=== PATIENT | female | born 1985 | race Caucasian/White ===

== ENCOUNTER 2017-10-06 02:50 | Inpatient (IN) | payer OTHER, SELFPAY ==
--- NOTE | 2017-10-06 02:50 | DT_ITS ---
This patient was seen during an EMR downtime October 04, 2017 - October 11, 2017. This patient may have a combination of paper and electronic documentation or all paper documentation. All documentation is viewable within the e-chart portion of [facility] for each patient visit.
--- NOTE | 2017-10-07 15:30 | CASEMGMT ---
Social Work Assessment Labor and Delivery Unit Date of Referral: 10/06/2017 Date of Intervention: 10/07/2017 Time of Intervention: 1530 Reason for Referral: maternal history of depression; assess for resources and support needs History obtained from: Medical record, mother of baby (MOB) Verona Bennett, and father of baby (FOB) also present for conversation. Household composition: MOB, FOB Colten Bennett, older child, and intent to take to this home. Denies any safety concerns in home environment. Patient's parent/guardian status: MOB and FOB are and now have two children together. Children: Loco who is a year and a half old, and then Lyndon who was born October 2017. Medical History: MOB is G2, P1 to 2 after delivery of . care started at 10 weeks gestation. born weighing 7 pounds 2 ounces. Educational Status: MOB is college educated, is licensed as a registered nurse. No problems with reading, writing, or learning comprehension. Financial Status: Adequate per MOBs report. 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 Supplies: Reports to have needed supplies including car seat and a safe sleep space for baby. Childcare/Caregiver(s): MOB, and then when MOB returns to work has child adolescent psychiatrist lined up. Transportation: No problems. Programs/Agencies Involved: no agency involvement, and no reported need for any type of assistance. Behavioral Health Issues: MOB reports history of depression, anxiety, and depression. MOB reports treatment with Prozac and Wellbutrin for emotional health issues, and this combination has worked well for MOB. No reports of any thoughts, plans, intent for self harm. MOB discusses stressors around of first child, which may have contributed to depression. No reports of any substance use or abuse issues. No tobacco smoking. Family/Social Stressors: No identified stressors at this time. MOB reports things are more level in home life as compared to first . MOB and FOB shared that when Loco was born, MARIZA was negotiating current employment contract, still working long shifts out of residency, and the family was in the process of selling their home and relocating to current home. MOB also reports expectations about breast feeding may have contributed to depression, and that this time around, though MOB plans to give an effort to breast feeding is also accepting of using formula. MOB reports to be the only person in the family who is really in support of MOB even trying to breast feed, though reports the family is supporting MOBs decisions in however MOB chooses to feed . Support Systems: MOB reports FOB will be off of work for the next couple of weeks to help with transition home. MOB and FOBs mothers are both working on a schedule to provide support to MOB a couple of days a week as well. MOB reports to feel that support system is adequate and MOB knows that has people to talk to as well as to provide practical support. ASSESSMENT: MOB engaged in conversation with social worker psychiatric, pleasant, friendly, and talkative. MOB held good eye contact, bright affect, and congruent mood. MOB did become teary eyed when talking about past depression. MOB reports to have awareness of signs and symptoms, of importance of self-care, and intent to remain on antidepressant medication in the period. MOB appearing receptive to talk about depression history. MOB reports to feel connected to this infant, and reports to be more relaxed this delivery as compared to the first. MOB reports to have needed supplies, to have supports, and will have help at home going. MOB reports if counseling is needed for additional support to have someone to call, whom MOB has used in the past. FOB present during social work visit, holding baby, and contributing intermittently to conversation. PLAN: MOB and to home with support from family. Provided MOB with packet on depression, tips for self-care, and online supports. Provided list of mental health providers in this area should MOB want or need extra support in this area. No other services requested or indicated. -SHAWN Andrews, BUSINESS PERFORMANCE SPECIALIST
[2017-10-09 06:56] LABS: Hematocrit 37.2 % (37-47); Hemoglobin 12.3 g/dl (12.0-15.0); Mean Corp Hgb Conc 33.1 g/gl (32-36); Mean Corpuscular Hgb 26.5 pg (27.0-32.0); Platelet Count 122 K/mm3 (150-450); RBC Distribution Width CV 14.5 % (11.6-14.6); RBC Distribution Width SD 41.7 fl (35.1-43.9); Red Blood Count 4.65 M/mm3 (4.2-5.4)
[2017-10-09 06:57] LABS: Differential Comment SCANNED; Scan Indicated on CBC? Y/N YES- FLAGS NOTED
[2017-10-09 14:54] LABS: Hematocrit 34.3 % (37-47); Hemoglobin 11.3 g/dl (12.0-15.0); Mean Corp Hgb Conc 32.9 g/gl (32-36); Mean Corpuscular Hgb 26.8 pg (27.0-32.0); Mean Corpuscular Volume 81.3 fL (81-99); Mean Platelet Vol. 13.6 fl (6.2-12.0); Platelet Count 103 K/mm3 (150-450); RBC Distribution Width CV 14.9 % (11.6-14.6); RBC Distribution Width SD 43.8 fl (35.1-43.9); Red Blood Count 4.22 M/mm3 (4.2-5.4); Scan Indicated on CBC? Y/N YES- FLAGS NOTED
[2017-10-09 14:55] LABS: Differential Comment SCANNED
== END 2017-10-07 18:10 | disposition home or self-care (01) | DRG 774 ==
PROVIDERS: Admitting Provider Obstetrics & Gynecology; Visit Provider Obstetrics & Gynecology
DX: O99.344 Other mental disorders complicating childbirth (principal); O98.32 Other infections with a predominantly sexual mode of transmission complicating childbirth; Z37.0 Single live birth; F41.9 Anxiety disorder, unspecified; F32.9 Major depressive disorder, single episode, unspecified; Z3A.39 39 weeks gestation of pregnancy; A63.8 Other specified predominantly sexually transmitted diseases; Z79.899 Other long term (current) drug therapy
CPT/HCPCS: 59050; 85027; 86850; 86900; 99218; J7120; G0378; J2405

== ENCOUNTER → 2018-12-28 14:05 | Outpatient (CLI) | payer OTHER, SELFPAY ==
[2018-12-28 10:00] VITALS: BMI 19.8
== END ==
PROVIDERS: Referring Provider Physician Assistant; Visit Provider Physician Assistant
DX: J02.9 Acute pharyngitis, unspecified (principal)
CPT/HCPCS: 87081

== ENCOUNTER → 2019-02-22 08:04 | Outpatient (CLI) | payer OTHER, SELFPAY ==
[2018-12-28 10:00] VITALS: BMI 19.8
--- NOTE | 2019-02-22 08:06 | CT_ITS ---
STUDY: CT MAXILLOFACIAL SINUSES REASON FOR EXAM: Female, 33 years old. Chronic sinusitis. Multiple rounds of antibiotics. RADIATION DOSAGE (If Supplied By Facility): CTDIvol = ( 33.06 ) mGy, DLP = ( 788.40 ) mGycm TECHNIQUE: The patient was scanned in a multi detector CT scanner. High resolution axial imaging was performed without the administration of intravenous contrast material. Sagittal and coronal images were reconstructed. Individualized dose optimization techniques were used for this CT. COMPARISON: None. FINDINGS: FRONTAL SINUSES: Normal aeration, without mucosal inflammatory disease. ETHMOIDAL SINUSES: Normal aeration, without mucosal inflammatory disease. MAXILLARY SINUSES: Normal aeration, without mucosal inflammatory disease. SPHENOIDAL SINUSES: Minimal degree of mucosal thickening along the anterior aspect of the left sphenoid sinus. There is patency of the bilateral maxillary infundibuli with normal uncinate processes, ethmoid bullae, and hiatus semilunaris. Normal bilateral middle turbinates. Normal bilateral inferior turbinates. There is a right sided nasal septal deviation, but without a nasal septal spur. There is patency of the bilateral nasal airways. The visualized osseous structures are normal. The visualized bilateral orbital contents are normal. CT/Sinus/Facial Bone IMPRESSION: Minimal residual mucosal thickening of the anterior aspect of the left sphenoid sinus. Electronically Signed: Matti Reid, at 9:54 EDT , Service support ,
== END ==
PROVIDERS: Family Provider Family Medicine; PCP Family Medicine; Referring Provider Family Medicine; Visit Provider Family Medicine
DX: J32.9 Chronic sinusitis, unspecified (principal)
CPT/HCPCS: 70486

== ENCOUNTER 2021-05-15 13:42 | Outpatient (CLI) | payer OTHER, SELFPAY | END 2021-05-15 23:59 | disposition short-term general hospital (02) | PROVIDERS: PCP Family Medicine; Referring Provider Physician Assistant; Visit Provider Physician Assistant | DX: Z11.52 Encounter for screening for COVID-19 (principal) | CPT/HCPCS: 87635; U0003; U0005 ==

== ENCOUNTER → 2023-08-23 | Outpatient (CLI) | payer OTHER, SELFPAY ==
[2023-08-23 11:45] LABS: Absolute Lymphocyte Count 1.82 X10^3/uL (0.83-4.51); Absolute Neutrophil Count 4.6 X10^3/uL (2.0-7.7); Basophil# 0.05 X10^3/uL; Basophil% 0.7 % (0-1); Eosinophil# 0.09 X10^3/uL; Eosinophils% 1.3 % (0-5); Hematocrit 36.1 % (37-47); Hemoglobin 11.4 g/dL (12.0-15.0); Lymphocyte # 1.82 X10^3/ul (0.83-4.51); Lymphocyte % 25.7 % (19-41); Mean Corp Hgb Conc 31.6 g/dL (32-36); Mean Corpuscular Hgb 25.9 pg (27.0-32.0); Mean Platelet Vol. 13.6 fl (6.2-12.0); Monocyte# 0.47 X10^3/uL; Monocyte% 6.6 % (0-10); NRBC Flagged by Analyzer 0 % (0-5); Neutrophil # 4.62 X10^3/uL (2.7-7.7); Neutrophil % 65.4 % (47-70); Platelet Count 172 K/mm3 (150-450); RBC Distribution Width CV 13.2 % (11.6-14.6); RBC Distribution Width SD 38.9 fl (35.1-43.9); White Blood Count 7.1 K/mm3 (4.4-11.0)
[2023-08-23 12:02] LABS: Vitamin D,25 Hydroxy 35.4 ng/mL
[2023-08-23 12:17] LABS: ALB/GLOB Ratio 1.1 RATIO (0.9-2.4); AST(SGOT) 16 U/L (15-37); Alanine Aminotransfer ALT/SGPT 22 U/L (13-56); Albumin, Serum 3.9 g/dL (3.2-5.0); Alkaline Phosphatase 50 U/L (45-117); Anion Gap 5 (5-15); BUN 9 mg/dL (7-18); BUN/Creat Ratio 12.9 RATIO (10-20); Calcium,Total 8.9 mg/dL (8.5-10.1); Chloride 106 mmol/L (98-107); Cholesterol 125 mg/dL (200); EST Glomerular Filtration Rate 101 mL/min (>60); Est Glom Filt Rate - Afr Amer 122 mL/min (>60); Globulin 3.4 g/dL (2.2-4.2); Glucose 84 mg/dL (74-106); High Density Lipoprotein 39 mg/dL; Potassium 3.9 mmol/L (3.5-5.1); Protein, Total 7.3 g/dL (6.4-8.2); Sodium Level 137 mmol/L (136-145); Thyroid Stim Hormone (TSH) 2.69 uIU/mL (0.358-3.74); Triglycerides 109 mg/dL; Very Low Density Lipoprotein 22 mg/dL (5-40)
[2023-08-23 12:24] LABS: Hemoglobin A1c 4.5 % (3.8-5.6)
== END | disposition home or self-care (01) ==
LOC: PAVLAB 10:57
PROVIDERS: PCP Family Medicine; Referring Provider Obstetrics & Gynecology; Visit Provider Obstetrics & Gynecology
DX: Z13.21 Encounter for screening for nutritional disorder (principal); Z13.0 Encounter for screening for diseases of the blood and blood-forming organs and certain disorders involving the immune mechanism; Z13.1 Encounter for screening for diabetes mellitus; N93.9 Abnormal uterine and vaginal bleeding, unspecified; Z13.220 Encounter for screening for lipoid disorders; Z13.29 Encounter for screening for other suspected endocrine disorder
CPT/HCPCS: 36415; 80053; 80061; 82306; 83036; 84443; 85025

== ENCOUNTER → 2024-08-30 | Outpatient (CLI) | payer OTHER, SELFPAY ==
[2024-08-30 12:10] LABS: Absolute Lymphocyte Count 1.71 X10^3/uL (0.83-4.51); Absolute Neutrophil Count 3.5 X10^3/uL (2.0-7.7); Basophil# 0.05 X10^3/uL; Basophil% 0.8 % (0-1); Eosinophil# 0.14 X10^3/uL; Eosinophils% 2.4 % (0-5); Hematocrit 37.8 % (37-47); Hemoglobin 12.4 g/dL (12.0-15.0); Lymphocyte # 1.71 X10^3/ul (0.83-4.51); Lymphocyte % 28.8 % (19-41); Mean Corp Hgb Conc 32.8 g/dL (32-36); Mean Corpuscular Hgb 27.1 pg (27.0-32.0); Mean Corpuscular Volume 82.5 fL (81-99); Mean Platelet Vol. 12.7 fl (6.2-12.0); Monocyte# 0.57 X10^3/uL; Monocyte% 9.6 % (0-10); NRBC Flagged by Analyzer 0 % (0-5); Neutrophil # 3.45 X10^3/uL (2.7-7.7); Neutrophil % 58.1 % (47-70); Platelet Count 175 K/mm3 (150-450); RBC Distribution Width CV 13.7 % (11.6-14.6); RBC Distribution Width SD 41.2 fl (35.1-43.9); Red Blood Count 4.58 M/mm3 (4.2-5.4); White Blood Count 5.9 K/mm3 (4.4-11.0)
[2024-08-30 12:45] LABS: Anion Gap 13 (5-15); BUN 16 mg/dL (4-19); BUN/Creat Ratio 22.1 RATIO (10-20); Calcium,Total 9.3 mg/dL (7.6-11.0); Carbon Dioxide 24.2 mmol/L (21.0-32.0); Chloride 100 mmol/L (98-108); Creatinine, Serum 0.72 mg/dL (0.70-1.20); EST Glomerular Filtration Rate 110 (>60); Glucose 84 mg/dL (70-99); Potassium 4.5 mmol/L (3.3-5.1); Sodium Level 137 mmol/L (133-145)
[2024-09-04 10:08] LABS: HPV APTIMA, High Risk Negative (Negative)
== END | disposition home or self-care (01) ==
PROVIDERS: PCP Family Medicine; Referring Provider Obstetrics & Gynecology; Visit Provider Obstetrics & Gynecology
DX: D64.9 Anemia, unspecified (principal); Z80.8 Family history of malignant neoplasm of other organs or systems; Z12.4 Encounter for screening for malignant neoplasm of cervix
CPT/HCPCS: 36415; 80048; 85025; 87624; 88175; G0145

== ENCOUNTER → 2024-09-13 | Outpatient (CLI) | payer OTHER, SELFPAY ==
--- NOTE | 2024-09-13 13:45 | US_ITS ---
EXAM: BREAST LIMITED UNILATERAL; DIAG MAMM W/CAD, BILAT; BILAT BRST SPENSER STAND ALONE N/A; 09/13/2024 CLINICAL HISTORY: 39-year-old female presents for palpable concern in the right breast. TECHNIQUE: Bilateral Diagnostic digital breast tomosynthesis with 2D and 3D images. Computer aided detection. Also, targeted right breast ultrasound was performed. COMPARISON: Baseline examination, no priors. FINDINGS: MAMMOGRAM: TISSUE DENSITY: The breast tissue is extremely dense which lowers the sensitivity of mammography. The mammogram demonstrates that the patient has dense breasts. Supplemental screening with whole breast ultrasound or MRI may be considered for further evaluation. Right breast: There is a triangle skin marker indicating an area of palpable concern in the lower outer quadrant. Underlying the skin marker no suspicious mammographic findings. Otherwise, there are no suspicious findings in the right breast. Left breast: There are no suspicious masses, grouped calcifications or architectural distortions in the left breast. RIGHT BREAST ULTRASOUND: Ultrasound performed of the area of palpable concern in the lower outer quadrant of the right breast demonstrates no suspicious sonographic findings. There is normal breast tissue visualized. There are no suspicious solid masses or abnormal cystic elements. US/Breast Limited Unilateral IMPRESSION: 1. There are no suspicious mammographic or sonographic findings in the area of patient's concern in the right breast. 2. There is no evidence of malignancy in either breast. Right Breast: BIRADS 1 NEGATIVE. Left Breast: BIRADS 1 NEGATIVE. OVERALL FINAL ASSESSMENT: BIRADS 1 NEGATIVE. RECOMMENDATION: Routine annual follow-up in 1 Year A letter with findings and recommendations will be mailed to the patient. Reading Location: [id number]
--- NOTE | 2024-09-13 14:00 | BI_ITS ---
EXAM: BREAST LIMITED UNILATERAL; DIAG MAMM W/CAD, BILAT; BILAT BRST SPENSER STAND ALONE N/A; 09/13/2024 CLINICAL HISTORY: 39-year-old female presents for palpable concern in the right breast. TECHNIQUE: Bilateral Diagnostic digital breast tomosynthesis with 2D and 3D images. Computer aided detection. Also, targeted right breast ultrasound was performed. COMPARISON: Baseline examination, no priors. FINDINGS: MAMMOGRAM: TISSUE DENSITY: The breast tissue is extremely dense which lowers the sensitivity of mammography. The mammogram demonstrates that the patient has dense breasts. Supplemental screening with whole breast ultrasound or MRI may be considered for further evaluation. Right breast: There is a triangle skin marker indicating an area of palpable concern in the lower outer quadrant. Underlying the skin marker no suspicious mammographic findings. Otherwise, there are no suspicious findings in the right breast. Left breast: There are no suspicious masses, grouped calcifications or architectural distortions in the left breast. RIGHT BREAST ULTRASOUND: Ultrasound performed of the area of palpable concern in the lower outer quadrant of the right breast demonstrates no suspicious sonographic findings. There is normal breast tissue visualized. There are no suspicious solid masses or abnormal cystic elements. BI/Bilat Brst Spenser Stand Alone IMPRESSION: 1. There are no suspicious mammographic or sonographic findings in the area of patient's concern in the right breast. 2. There is no evidence of malignancy in either breast. Right Breast: BIRADS 1 NEGATIVE. Left Breast: BIRADS 1 NEGATIVE. OVERALL FINAL ASSESSMENT: BIRADS 1 NEGATIVE. RECOMMENDATION: Routine annual follow-up in 1 Year A letter with findings and recommendations will be mailed to the patient. Reading Location: [id number]
== END | disposition home or self-care (01) ==
LOC: OPBI 13:44
PROVIDERS: PCP Family Medicine; Referring Provider Obstetrics & Gynecology; Visit Provider Obstetrics & Gynecology
DX: N63.13 Unspecified lump in the right breast, lower outer quadrant (principal)
CPT/HCPCS: 76642; 77062; 77066; G0279